=== PATIENT | female | born 1955 | race Caucasian/White ===

== ENCOUNTER 2017-10-24 07:07 | Day surgery (SDC) ==
[2017-10-24] MEDS ORDERED: CORTISPORIN OTIC SUSP OT PRN (07:42)
[2017-10-24] MEDS ORDERED: NEO-SYNEPHRINE OT PRN (07:42)
[2017-10-24] MEDS ORDERED: SUBLIMAZE ONE (08:00)
[2017-10-24] MEDS ORDERED: DIPRIVAN 20 ML VIAL IVP ONE (08:00)
[2017-10-24] MEDS ORDERED: VERSED ONE (08:00)
[2017-10-24] MEDS ORDERED: ANECTINE ONE (08:00)
--- NOTE | 2017-10-24 10:42 | OP ---
cc: Dr. Davidson PREOPERATIVE DIAGNOSIS: Left true vocal cord polyp. POSTOPERATIVE DIAGNOSIS: Left true vocal cord polyp. OPERATION: Excision of left true vocal cord polyp. PROCEDURE: The patient was taken to surgery, placed on the table and general anesthesia was administered. A 5 mm endotracheal tube was inserted. Usual precaution was taken with eyes and face. An anterior larygoscope was inserted down to the level of the vocal cords. There was a large left true vocal cord polyp which was identified using a 400 mm lens and Zeiss microscope the polyp was grasped and removed. There was minimal bleeding. The patient was then extubated and returned to the recovery room in satisfactory condition. SMITA
[2017-10-24 10:50] VITALS: BP 122/67; TEMP 97.3
== END 2017-10-24 09:10 | disposition home or self-care (01) ==
LOC: SURG 07:07
PROVIDERS: ATTEND Otolaryngology
DX: J38.1 Polyp of vocal cord and larynx (principal); R49.0 Dysphonia
CPT/HCPCS: 31536